=== PATIENT | male | born 1970 | race Caucasian/White ===

== ENCOUNTER → 2018-06-20 | Outpatient (REF) | payer BC ==
[~2018-06-20] MED LIST: ACYC-50 PO; DAR100 PO; FISH OIL1 CAP PO; HYDR30CR10 TP; IBU200 PO; PAR20 PO
[2018-06-20 09:41] LABS: PLATELET COUNT, AUTOMATED 212 K/uL (150-450)
== END ==
LOC: ZZSTITCHES 09:28
PROVIDERS: ATTEND Physician Assistant
DX: M79.671 Pain in right foot (principal)
CPT/HCPCS: 84550; 85025